=== PATIENT | female | born 1960 | race Caucasian/White ===

== ENCOUNTER 2020-10-06 06:54 | Emergency (ER) | payer MEDICARE ==
[~2020-10-06] VITALS: Ht 162.6 cm; Wt 90.0 kg
[2020-10-06 07:07] VITALS: BP 137/84
== END 2020-10-06 08:24 | disposition home or self-care (01) ==
LOC: ER 06:54
DX: B34.9 Viral infection, unspecified (principal); Z20.822 Contact with and (suspected) exposure to COVID-19; R11.2 Nausea with vomiting, unspecified; E11.42 Type 2 diabetes mellitus with diabetic polyneuropathy; E78.00 Pure hypercholesterolemia, unspecified; I10 Essential (primary) hypertension; E11.9 Type 2 diabetes mellitus without complications
CPT/HCPCS: 87635; 99283; C9803

== ENCOUNTER 2022-06-15 06:45 | Day surgery (SDC) | payer MEDICARE, MEDICAID ==
[2022-06-14 14:58] LABS: BASOPHILS # (AUTO) 0.1 X10'3 (0-0.2); EOSINOPHILS # (AUTO) 0.2 X10'3 (0-0.9); EOSINOPHILS % (AUTO) 1.4 % (0-6); HEMOGLOBIN 16.4 g/dl (12.0-16.0); LYMPHOCYTES # (AUTO) 4.1 X10'3 (1.1-4.8); LYMPHOCYTES % (AUTO) 33.4 % (21-51); MEAN CORPUSCULAR HEMOGLOBIN 30.8 PG (27.0-31.0); MEAN CORPUSCULAR HGB CONC 32.8 g/dL (33.0-36.5); MEAN CORPUSCULAR VOLUME 93.8 FL (78-98); MEAN PLATELET VOLUME 6.7 FL (7.4-10.4); MONOCYTES % (AUTO) 7.9 % (2-12); NEUTROPHILS % (AUTO) 56.3 % (42-75); PLATELET COUNT 446 X10'3 (140-440); RED BLOOD COUNT 5.33 X10'6 (4.20-5.60); RED CELL DISTRIBUTION WIDTH 14.6 % (11.5-14.5); WHITE BLOOD COUNT 12.3 X10'3 (4.5-11.0)
[2022-06-14 15:10] LABS: APTT 26 SECONDS (22-32)
[2022-06-14 15:12] LABS: ALANINE AMINOTRANSFERASE 26 U/L (12-78); ALBUMIN 3.7 G/DL (3.4-5.0); ALBUMIN/GLOBULIN RATIO 1.1 (1.1-1.5); ALKALINE PHOSPHATASE 99 IU/L (46-116); ANION GAP 12 (8-16); ASPARTATE AMINO TRANSFERASE 9 U/L (10-37); BILIRUBIN,TOTAL 0.3 MG/DL (0.1-1.0); BLOOD UREA NITROGEN 12 MG/DL (7-18); BUN/CREATININE RATIO 18.2 (10.0-20.0); CALCIUM 9.3 MG/DL (8.5-10.1); CHLORIDE 102 MMOL/L (99-107); CREATININE 0.66 MG/DL (0.40-0.90); GLUCOSE 249 MG/DL (70-104); POTASSIUM 4.1 MMOL/L (3.5-5.1); SODIUM 137 MMOL/L (135-145); TOTAL CARBON DIOXIDE 23.4 MMOL/L (24-32); TOTAL PROTEIN 7.1 G/DL (6.4-8.2); eGFR 90 ML/MIN
[2022-06-15] VITALS (15 sets, daily range): BP systolic 109–144; BP diastolic 56–76
[~2022-06-15] VITALS: Ht 162.6 cm; Wt 90.9 kg
[2022-06-15] MEDS ORDERED: normal saline 1,000 ML IV SCH (07:10)
[2022-06-15] MEDS ORDERED: nitroGLYCERIN 0.4mg SUBLingual tab SL PRN ×2 (07:10→10:35)
[2022-06-15] MEDS ORDERED: insulin Lispro (HumaLOG) vial - multi-dose SQ SCH (07:10)
[2022-06-15] MEDS ORDERED: LORazepam 0.5 MG tablet PO PRN (07:10)
[2022-06-15] MEDS ORDERED: insulin regular, human U-100 3ml vial - multi-dose SQ SCH (07:10)
[2022-06-15] MEDS ORDERED: diphenhydrAMINE 25mg capsule PO PRN (07:10)
[2022-06-15] MEDS ORDERED: BACL10TA2 PO (07:15)
[2022-06-15] MEDS ORDERED: HYDR-3973 PO (07:15)
[2022-06-15] MEDS ORDERED: DAPA10TA PO (07:15)
[2022-06-15] MEDS ORDERED: LISI20TA28 PO (07:15)
[2022-06-15] MEDS ORDERED: ATOR10TA70 PO (07:15)
[2022-06-15] MEDS ORDERED: DULO60CA65 PO (07:15)
[2022-06-15] MEDS ORDERED: UMEC1DIS PO (07:15)
[2022-06-15] MEDS ORDERED: ALBU18HF2 PO (07:15)
[2022-06-15] MEDS ORDERED: dextrose 50%-water 50ml dispensing syringe IV PRN ×2 (07:20)
[2022-06-15] MEDS ORDERED: MESSAGE TO PHARMACY PO ONE (07:20)
[2022-06-15] MEDS ORDERED: DEXTROSE 15 GM of carb/4 tabs (each vial/BOTTLE has 4 tablets) PO PRN ×2 (07:20)
[2022-06-15] MEDS ORDERED: glucagon, human recombinant 1mg kit SUBCUT PRN (07:20)
[2022-06-15] MEDS ORDERED: midazolam 1 mg/ML 2ml injection ONE (08:43)
[2022-06-15] MEDS ORDERED: fentaNYL/PF 50MCG/1 ML 2ML syringe ONE (08:43)
[2022-06-15] MEDS ORDERED: LIDOcaine 1% 30ml preserv. free vial ONE (08:43)
[2022-06-15] MEDS ORDERED: iohexol 350 MG/ML 50ML vial IV ONE (08:43)
[2022-06-15] MEDS ORDERED: iohexol 350MG/ML 100ml bottle IV ONE (08:44)
[2022-06-15] MEDS ORDERED: HYDROcodone/acetaminophen 5mg/325mg tablet PO PRN (10:35)
[2022-06-15] MEDS ORDERED: normal saline 1000ml 1,000 ML IV SCH (10:35)
[2022-06-15] MEDS ORDERED: OXAZEpam 15mg capsule PO PRN (10:35)
[2022-06-15] MEDS ORDERED: ondansetron/PF 4mg/2ml inj IV PRN (10:35)
[2022-06-15] MEDS ORDERED: proCHLORperazine 10 MG/2 ml inj IV PRN (10:35)
[2022-06-15] MEDS: HYDROcodone/acetaminophen 10/325mg tab PO PRN ×2 (10:42→15:26)
--- NOTE | 2022-06-15 11:00 | NUR ---
Kelsey placed due to inability to void via bedpan.
[2022-06-15] MEDS ORDERED: insulin glargine (Lantus) pen - multi-dose SQ SCH (21:00)
== END 2022-06-15 17:00 | disposition home or self-care (01) ==
LOC: SSTAY O 06:45
PROVIDERS: ATTEND Internal Medicine Cardiovascular Disease
DX: R94.39 Abnormal result of other cardiovascular function study (principal); I10 Essential (primary) hypertension; F32.A Depression, unspecified; E11.9 Type 2 diabetes mellitus without complications; J44.9 Chronic obstructive pulmonary disease, unspecified; E78.5 Hyperlipidemia, unspecified; F17.210 Nicotine dependence, cigarettes, uncomplicated; Z98.890 Other specified postprocedural states; Z79.899 Other long term (current) drug therapy; Z79.01 Long term (current) use of anticoagulants
CPT/HCPCS: 36415; 71046; 80053; 85025; 85610; 85730; 93005; 93458; 99152; C1760; J1644; J1815; J2250; J3010; J3490; J7030; Q0163; Q9967; 99153; A6258

== ENCOUNTER 2023-03-21 09:39 | Outpatient (CLI) | payer MEDICARE, MEDICAID ==
[~2023-03-21 09:39] MED LIST: ALBU18HF2 PO; ATOR10TA70 PO; BACL10TA2 PO; DAPA10TA PO; DULO60CA65 PO; HYDR-3973 PO; LISI20TA28 PO; UMEC1DIS PO
[2023-03-21 10:38] LABS: BASOPHILS # (AUTO) 0.1 X10'3 (0-0.2); BASOPHILS % (AUTO) 1.2 % (0-1); EOSINOPHILS # (AUTO) 0.1 X10'3 (0-0.9); EOSINOPHILS % (AUTO) 0.8 % (0-6); LYMPHOCYTES # (AUTO) 3.7 X10'3 (1.1-4.8); LYMPHOCYTES % (AUTO) 33.9 % (21-51); MEAN CORPUSCULAR HGB CONC 33.1 g/dL (33.0-36.5); MEAN CORPUSCULAR VOLUME 90.5 FL (78-98); MEAN PLATELET VOLUME 6.6 FL (7.4-10.4); MONOCYTES # (AUTO) 0.7 X10'3 (0-0.9); MONOCYTES % (AUTO) 6.7 % (2-12); NEUTROPHILS # (AUTO) 6.3 X10'3 (1.8-7.7); NEUTROPHILS % (AUTO) 57.4 % (42-75); PRE OP HEMATOCRIT 50.4 % (35.0-45.0); PRE OP HEMOGLOBIN 16.7 g/dL (12.0-16.0); PRE OP PLATELET COUNT 432 X10'3 (140-440); RED BLOOD COUNT 5.56 X10'6 (4.20-5.60); RED CELL DISTRIBUTION WIDTH 14.3 % (11.5-14.5)
[2023-03-21 10:52] LABS: ALBUMIN 3.6 G/DL (3.4-5.0); ALBUMIN/GLOBULIN RATIO 0.9 (1.1-1.5); ALKALINE PHOSPHATASE 109 IU/L (46-116); BLOOD UREA NITROGEN 14 MG/DL (7-18); BUN/CREATININE RATIO 20.6 (10.0-20.0); CALCIUM 9.3 MG/DL (8.5-10.1); CHLORIDE 103 MMOL/L (99-107); CREATININE 0.68 MG/DL (0.40-0.90); PRE OP ALT 21 U/L (30-65); PRE OP ANION GAP 7 (8-16); PRE OP AST 12 U/L (10-37); PRE OP BILIRUB, TOTAL 0.4 MG/DL (0.0-1.0); PRE OP POTASSIUM 4.8 MMOL/L (3.4-5.1); PRE OP SODIUM 138 MMOL/L (135-145); TOTAL CARBON DIOXIDE 27.9 MMOL/L (24-32); TOTAL PROTEIN 7.4 G/DL (6.4-8.2); eGFR 87 ML/MIN
[2023-03-21 10:54] LABS: PRE OP GLUCOSE 208 MG/DL (70-104)
[2023-03-21 10:55] LABS: HEMOGLOBIN A1C 9.5 % (4.5-6.2)
== END 2023-03-21 23:59 | disposition home or self-care (01) ==
LOC: PRE-OP 09:39 → EDSTATUS 03-27 10:30
PROVIDERS: ATTEND Orthopaedic Surgery
DX: M17.11 Unilateral primary osteoarthritis, right knee (principal); Z01.810 Encounter for preprocedural cardiovascular examination; Z01.812 Encounter for preprocedural laboratory examination
CPT/HCPCS: 36415; 71046; 80053; 83036; 85025; 87081; 93005

== ENCOUNTER → 2023-06-16 | Outpatient (CLI) | payer MEDICARE, MEDICAID ==
[~2023-06-16] MED LIST changes: -ALBU18HF2 PO
== END | disposition home or self-care (01) ==
LOC: RAD 09:57
PROVIDERS: ATTEND Family Medicine
DX: M25.511 Pain in right shoulder (principal); M67.411 Ganglion, right shoulder
CPT/HCPCS: 73030

== ENCOUNTER → 2024-03-26 | Outpatient (CLI) | payer MEDICARE, MEDICAID ==
[~2024-03-26] MED LIST changes: -DAPA10TA PO; +DAPA5TAB PO; +GABA300C PO; +PANT20TA18 PO; +SEMA14TA2 PO
== END | disposition home or self-care (01) ==
LOC: MRI02 06:10
PROVIDERS: ATTEND Pediatrics Sports Medicine
DX: M51.27 Other intervertebral disc displacement, lumbosacral region (principal); M51.26 Other intervertebral disc displacement, lumbar region; M48.07 Spinal stenosis, lumbosacral region; M47.817 Spondylosis without myelopathy or radiculopathy, lumbosacral region; M79.10 Myalgia, unspecified site; M46.1 Sacroiliitis, not elsewhere classified; M43.16 Spondylolisthesis, lumbar region; M25.78 Osteophyte, vertebrae
CPT/HCPCS: 72148